=== PATIENT | male | born 1990 | race Caucasian/White ===

== ENCOUNTER → 2025-09-18 07:23 | Outpatient (CLI) | payer OTHER, SELFPAY ==
--- NOTE | 2025-09-18 07:25 | DI.MRI.S_ITS ---
PROCEDURE: MR SHOULDER LT WO CON INDICATIONS: left shoulder pain TECHNIQUE: Noncontrast oblique coronal T2 fast spin echo with fat saturation, oblique sagittal T1 spin echo and T2 fast spin echo with fat saturation, axial T1 spin echo and T2 fast spin echo with fat saturation through the shoulder. COMPARISON: None. FINDINGS: Image quality: Excellent. Rotator cuff: Mild supraspinatus tendinopathy with low-grade interstitial tear near the insertion (8/12). The infraspinatus, subscapularis, and teres minor tendons appear intact without significant tendinopathy. Sagittal images demonstrate no muscle atrophy. Bones and bursae: No bone marrow contusions or fractures. No acromioclavicular joint degeneration. No pathologic subacromial-subdeltoid or subcoracoid bursal fluid is present. Capsule and soft tissues: Labrum appears intact. The long head of the biceps tendon demonstrates normal location and morphology. The rotator interval appears normal, without fibrosis. The coracohumeral ligament is normal in thickness. IMPRESSION: Mild supraspinatus tendinopathy and low grade interstitial tear. Dictated by: Migdalia Mueller M.D. on 09/20/2025 at 23:31 Approved by: Migdalia Mueller M.D. on 09/20/2025 at 23:37
== END ==
LOC: MRI 07:24
PROVIDERS: PCP Student in an Organized Health Care Education/Training Program; Referring Provider Student in an Organized Health Care Education/Training Program; Visit Provider Student in an Organized Health Care Education/Training Program
DX: M75.112 Incomplete rotator cuff tear or rupture of left shoulder, not specified as traumatic (principal); M25.512 Pain in left shoulder
CPT/HCPCS: 73221